=== PATIENT | female | born 2000 | race Caucasian/White ===

== ENCOUNTER 2025-09-22 10:25 | Emergency (ER) | payer SELFPAY ==
--- OUTSIDE RECORDS SUMMARY | 2025-09-11 16:28 | XMS_ITS | Continuity of Care Document ---
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 Name Role Phone Hernesto Neal Primary Care Physician Encounter [facility] [id number] Date(s): 09/11/25 - 09/11/[address] [address]- Encounter Diagnosis Threatened miscarriage(Discharge Diagnosis) - 09/11/25 Intrauterine (Discharge Diagnosis) - 09/11/25 Asymptomatic bacteriuria(Discharge Diagnosis) - 09/11/25 Subchorionic hemorrhage(Discharge Diagnosis) - 09/11/25 Discharge Disposition: Home (Routine DC) Attending Physician: Helen Salcido DO Encounter Type: Emergency Allergies, Adverse Reactions, Alerts No Known Allergies Treatment Plan Extracted from:Title:ED NoteAuthor:Helen Salcido DODate:09/11/25 1. Threatened miscarriage (O20.0: Threatened ) 2.??Subchorionic hemorrhage??(O46.8X9: Other antepartum hemorrhage, unspecified trimester) 3.??Intrauterine ??(Z34.90: Encounter for supervision of normal , unspecified, unspecified trimester) 4.??Asymptomatic bacteriuria??(R82.71: Bacteriuria) Orders: cephalexin, 500 mg = 1 cap(s), Oral, BID, X 7 day(s), # 14 cap(s), Refills(s) 0, Pharmacy: [facility], 154, cm, 09/11/25 14:04:00 EST, Height/Length Dosing, 51.4, kg, 09/11/25 14:04:00 EST, Weight Dosing RHo (D) immune globulin, 300 mcg = 2 mL, Injection, IntraMuscular, Once, Stop date 09/11/25 15:32:00 EST, STAT, Start date 09/11/25 15:32:00 EST, 09/11/25 15:32:00 EST ABO/Rh Basic Metabolic Panel Beta hCG Quantitative CBC w/ Auto Diff eGFR Extra Blue Tube U Beta Hcg Qual UA with Cult Rflx UA with Cult Rflx SP Urine Culture US Limited Diagnostic Tests Pending * Urine Culture 09/11/25 Immunizations Given and Recorded VaccineDateStatusRefusal Reasonmeningococcal group B vaccine06/22/18Recorded meningococcal group B vaccine05/18/18Recordedhuman papillomavirus vaccine05/18/18 Recordedhuman papillomavirus vaccine05/27/14Recordedhuman papillomavirus vaccine 03/14/14Recordedmeningococcal conjugate vaccine05/18/18Recordedmeningococcal conjugate vaccine03/14/14Recordedhepatitis A adult vaccine03/14/14Recorded hepatitis A adult vaccine04/02/07Recordeddiphtheria/pertussis, acel/tetanus adult 03/14/14Recordedvaricella virus vaccine04/02/07Recordedvaricella virus vaccine 07/27/03Recordedmeasles/mumps/rubella virus vaccine04/02/07Recorded measles/mumps/rubella virus vaccine07/27/03Recordedpoliovirus vaccine, inactivated04/02/07Recordedpoliovirus vaccine, inactivated02Recorded poliovirus vaccine, etzxbnptvpq02Recordedpoliovirus vaccine, inactivated 02Recordeddiphtheria/pertussis, acel/tetanus ped04/02/07Recorded diphtheria/pertussis, acel/tetanus ped07/27/03Recordeddiphtheria/pertussis, acel/tetanus ped02Recordeddiphtheria/pertussis, acel/tetanus ped02 Recordeddiphtheria/pertussis, acel/tetanus ped02Recordedhaemophilus b conjugate (HbOC) vaccine07/27/03Recordedhaemophilus b conjugate (HbOC) vaccine 02Recordedhaemophilus b conjugate (HbOC) lmreklu99/4/02Recordedhaemophilus b conjugate (HbOC) vaccine02Recordedhepatitis B adult vaccine02Recorded hepatitis B adult vaccine02Recordedhepatitis B adult vaccine02Recorded Not Given VaccineDateStatusRefusal XrodptBVVU-YeW-2 mRNA (tozinameran 5y-11y) vac03/27/23 Not GivenRefused by parent, guardian, or patient - reschedule Medications Keflex 500 mg oral capsule 500 mg = 1 cap(s), Oral, BID, X 7 day(s), # 14 cap(s), Refills(s) 0, Pharmacy: [facility] 1985, 154, cm, 09/11/25 14:04:00 EST, Height/Length Dosing, 51.4, kg, 09/11/25 14:04:00 EST, Weight Dosing Start Date: 09/11/25 Stop Date: 09/18/25 Status: Ordered Medication Dispense Status: Completed Quantity: 14.0 Unit: cap(s) Total Allowed Fills: 1 Fills Dispensed: 0 Sprintec oral tablet 1 tab(s), Oral, Daily, 84 tab(s), Refill(s) 4, [facility] Start Date: 09/15/19 Status: Ordered Medication Dispense Status: Completed Quantity: 84.0 Unit: tab(s) Total Allowed Fills: 5 Fills Dispensed: 0 Problem List ConditionConfirmationCourseEffective DatesStatusHealth StatusInformantWell child wwrleNafxnxbnxDguefdSkfoua8JvfugzypaLtadgeGdjuqmh useConfirmedActivepatient 1Added secondary to documentation in Social History. Procedures ProcedureDateRelated DiagnosisBody SiteStatusTonsils and Shhbvua7067Mewhehkqi Results Laboratory List NameDateU Beta Hcg Qual09/11/25UA with Cult Rflx111/11/24UA with Cult Rflx SP 09/11/25ABO/Rh09/11/25Basic Metabolic Panel09/11/25Beta hCG Quantitative (hCG Quantitative)09/11/25CBC w/ Auto Diff09/11/2588bWUO43/9/25 Most recent to oldest [Reference Range]:1ABO/RhO NEG *Unknown* (09/11/25 2:15 PM)UA Bacteria [Trace /HPF]1+ /HPF *ABN* (09/11/25 2:31 PM)UA Bili [Negative mg/dL]Negative mg/dL (09/11/25 2:31 PM)UA Color [Yellow]Light-Brown1 *ABN* (09/11/25 2:31 PM)UA Glucose [Negative mg/dL]Negative mg/dL (09/11/25 2:31 PM)UA Ketones [Negative mg/dL]Negative mg/dL (09/11/25 2:31 PM)UA Leuk Est [Negative Radha/uL]Negative Radha/uL (09/11/25 2:31 PM)UA Mucous [Negative graded/LPF]Trace graded/LPF (09/11/25 2:31 PM)UA Nitrite [Negative mg/dL]Negative mg/dL (09/11/25 2:31 PM)UA Protein [Negative mg/dL]Trace mg/dL *ABN* (09/11/25 2:31 PM)UA RBC [0-3 graded/HPF]>75 graded/HPF *ABN* (09/11/25 2:31 PM)UA Squam Epithelial0-2 graded/HPF *NA* (09/11/25 2:31 PM)UA Urobilinogen [Negative mg/dL]Negative mg/dL (09/11/25 2:31 PM)UA WBC [0-5 graded/HPF]>75 graded/HPF *ABN* (09/11/25 2:31 PM)UA Spec DescClean Catch (09/11/25 2:31 PM)UA Blood [Negative mg/dL]3+ mg/dL *ABN* (09/11/25 2:31 PM)UA Clarity [Clear]Turbid *ABN* (09/11/25 2:31 PM)BUN/Creat Ratio [10-20]13 (09/11/25 2:15 PM)AGAP [6-16 mEq/L]12 mEq/L (09/11/25 2:15 PM)Basophil Auto [0.0-2.0 %]0.2 % (09/11/25 2:15 PM)CO2 [21-31 mmol/L]26 mmol/L (09/11/25 2:15 PM)Eos Auto [0.0-8.0 %]1.3 % (09/11/25 2:15 PM)Glucose Lvl [55-199 mg/dL]79 mg/dL (09/11/25 2:15 PM)Hct [34.0-46.0 %]42.4 % (09/11/25 2:15 PM)Hgb [12.0-16.0 gm/dL]14.4 gm/dL (09/11/25 2:15 PM)Lymph Auto [14.0-50.0 %]14.2 % (09/11/25 2:15 PM)RBC [4.3-5.9 E12/L]4.8 E12/L (09/11/25 2:15 PM)RDW [10.9-14.2 %]13.3 % (09/11/25 2:15 PM)Sodium Lvl [135-145 mmol/L]137 mmol/L (09/11/25 2:15 PM)MCH [27.0-34.0 pg]30.1 pg (09/11/25 2:15 PM)MCHC [31.4-36.0 gm/dL]33.9 gm/dL (09/11/25 2:15 PM)MCV [80.0-100.0 fL]88.7 fL (09/11/25 2:15 PM)[place] Auto [4.0-14.0 %]3.2 % *LOW* (09/11/25 2:15 PM)MPV [6.4-10.8 fL]9.3 fL (09/11/25 2:15 PM)Neutro Auto [36.0-75.0 %]81.1 % *HI* (09/11/25 2: PM)UA pH [5.0-9.0]6.5 *NA* (09/11/25 2:31 PM)BUN [5-21 mg/dL]9 mg/dL (09/11/25 2:15 PM)Calcium Lvl [8.9-11.1 mg/dL]9.0 mg/dL (09/11/25 2:15 PM)Platelet [150.0-500.0 E9/L]252.0 E9/L (09/11/25 2:15 PM)Potassium Lvl [3.5-5.3 mmol/L]3.6 mmol/L (09/11/25 2:15 PM)UA Spec Grav [1.005-1.030]1.007 *NA* (09/11/25 2:31 PM)WBC [4.0-11.0 E9/L]13.8 E9/L2 *HI* (09/11/25 2:15 PM)Chloride [101-111 mmol/L]103 mmol/L (09/11/25 2:15 PM)Beta hCG Qnt [1-3 mIU/mL]890210 mIU/mL3 *HI* (09/11/25 2:15 PM)[place] Absolute [0.2-1.0 E9/L]0.4 E9/L (09/11/25 2:15 PM)Eos Absolute [0.0-0.5 E9/L]0.2 E9/L (09/11/25 2:15 PM)Basophil Absolute [0.0-0.2 E9/L]0.0 E9/L (09/11/25 2:15 PM)Neutro Absolute [2.0-7.5 E9/L]11.2 E9/L *HI* (09/11/25 2:15 PM)Lymph Absolute [1.0-4.0 E9/L]2.0 E9/L (09/11/25 2:15 PM)eGFR [>=59 mL/min/1.73 m2]124 mL/min/1.73 m2 (09/11/25 2:15 PM)Creatinine [0.5-1.3 mg/dL]0.7 mg/dL (09/11/25 2:15 PM)U beta hCG QlPositive (09/11/25 2:31 PM) 1Interpretive Data: Microscopic readings are only performed on those samples that meet specific criteria set forth by [facility]. 2Result Comment: Peripheral smear review performed. 3Result Comment: 'F NON < 1 - 3' ' 0.2 - 1 WEEK = 5 TO 50' ' 1 - 2 WEEKS = 50 - 500' ' 2 - 3 WEEKS = 100 - 5000' ' 3 - 4 WEEKS = 500 - 72171' ' 4 - 5 WEEKS = 1000 - 75877' ' 5 - 6 WEEKS = 36934 - 463867' ' 6 - 8 WEEKS = 58985 - 390606' ' 8 - 12 WEEKS = 06171 - 712208' Social History Social History TypeResponseSmoking Qacsdi40 or more cigarettes (1/2 pack or more)/day in last 30 days entered on: 09/11/25Birth SexFemaleSex RepresentationFemale (finding) Hospital Discharge Instructions Patient Education 09/11/2025 16:02:14 Subchorionic Hematoma Subchorionic Hematoma A hematoma is a collection of blood outside of the blood vessels. A subchorionic hematoma is a collection of blood between the outer wall of the embryo (chorion) and the inner wall of the uterus. This condition can cause vaginal bleeding. Early small hematomas usually shrink on their own and donot affect your baby or . When bleeding starts later in , or if the hematoma is larger or occurs in older women, the condition may be more serious. Larger hematomas increase the chances of miscarriage. This condition also increases the risk of: ??? Premature separation of the placenta from the uterus. ??? Premature () labor. ??? Stillbirth. What are the causes? The exact cause of this condition is not known. It occurs when blood is trapped between the placenta and the uterine wall because the placenta has from the original site of implantation. What increases the risk? You are more likely to develop this condition if: ??? You were treated with fertility medicines. ??? You became through in vitro fertilization (IVF). What are the signs or symptoms? Symptoms of this condition include: ??? Vaginal spotting or bleeding. ??? Abdominal pain. This is rare. Sometimes you may have no symptoms and the bleeding may only be seen when ultrasound images are taken (transvaginal ultrasound). How is this diagnosed? This condition is diagnosed based on a physical exam. This includes a pelvic exam. You may also have other tests, including: ??? Blood tests. ??? Urine tests. ??? Ultrasound of the abdomen. How is this treated? Treatment for this condition can vary. Treatment may include: ??? Watchful waiting. You will be monitored closely for any changes in bleeding. ??? Medicines. ??? Activity restriction. This may be needed until the bleeding stops. ??? A medicine called Rh immunoglobulin. This is given if you have an Rh- negative blood type. It prevents Rh sensitization. Follow these instructions at home: ??? Stay on bed rest if told to do so by your health care provider. ??? Do not lift anything that is heavier than 10 lb (4.5 kg), or the limit that you are told by your health care provider. ??? Track and write down the number of pads you use each day and how soaked (saturated) they are. ??? Do not use tampons. ??? Keep all follow-up visits. This is important. Your health care provider may ask you to have follow-up blood tests or ultrasound tests or both. Contact a health care provider if: ??? You have any vaginal bleeding. ??? You have a fever. Get help right away if: ??? You have severe cramps in your stomach, back, abdomen, or pelvis. ??? You pass large clots or tissue. Save any tissue for your health care provider to look at. ??? You faint. ??? You become light-headed or weak. Summary ??? A subchorionic hematoma is a collection of blood between the outer wall of the embryo (chorion)and the inner wall of the uterus. ??? This condition can cause vaginal bleeding. ??? Sometimes you may have no symptoms and the bleeding may only be seen when ultrasound images aretaken. ??? Treatment may include watchful waiting, medicines, or activity restriction. ??? Keep all follow-up visits. Get help right away if you have severe cramps or heavy vaginal bleeding. This information is not intended to replace advice given to you by your health care provider. Make sure you discuss any questions you have with your health care provider. Document Revised: 07/16/2021 Document Reviewed: 07/16/2021 [employer] Patient Education ?? 2023 EVRGR. Follow Up Care 09/11/2025 13:54:59 With:Suly Levy Address: [address] [address]- Business (1) When:09/14/2025 16:02:04 With:Murali EVANS Address: [address] [place] [address]- Business (1) When:09/14/2025 16:01:47 With:Hernesto Neal Address: [address] [place] [address]- Business (2) When:Within 3 Day(s) Physician Emergency department Note * Helen Salcido DO: MODIFY, MODIFY, MODIFY, MODIFY, MODIFY, PERFORM Event Display: ED Note-Physician Authored Date: [id number] Basic Information Time Seen: Helen Salcido DO ??09/11/2025 14:01 Chief Complaint currently 15 weeks , has not seen OB yet, wants to schedule with Dr. Tubbs. vaginal bleeding started approx. 20 minutes ago. states she had a panty liner on and when she checked in it randown her leg. History of Present Illness Patient is a 25-year-old female?? currently 19 weeks ??first day last menstrual periodJune 25. ??Presenting for evaluation of vaginal bleeding that started??today.?? She denies any abdominal pain with this. ??Start about 20 minutes ago.?? She does state she has gone through 2 pantiliners and there was some bleeding is going down her right leg. ??Denies passing clots.??She plans to establish??care with Dr. Tubbs for this her ultrasound done. ??She did do a home test which was positive.?? Review of Systems Constitutional: no fever, no chills, no sweats, no weakness HEENT: no sore throat, ear pain, sinus congestion?? Respiratory: no SOB, no cough, no orthopnea, no wheezing?? Cardiovascular: no chest pain, no palpitations, no edema?? Abdomen: no pain, distension, no n/v or diarrhea?? Extremities: no swelling?? Neurological: no dizziness, confusion, headache?? Additional ROS info: Except as noted above in the above review of systems and in the history of present illness all other systems have been reviewed and are negative or noncontributory?? Physical Exam Vitals & Measurements T:??36.5?C(Oral)?? HR:??91(Peripheral)?? RR:??18?? BP:??121/60?? SpO2:??100%?? HT:??154??cm?? WT:??51.4??kg?? BMI:??21.67?? Constitutional: No acute distress, nontoxic, non ill appearing?? Heart: Regular rate and rhythm without murmurs, gallops or rubs?? Lungs: clear to auscultation bilaterally without wheezes, rales or rhonchi?? Abdomen: soft, minimal lower??abdominal tenderness, nondistended abdomen, gravid abdomen : Small amount of dark red blood pooling in the vaginal vault, cervix is closed, no lacerations, no clots, no lesions, no purulent discharge Extremities: warm and dry bilaterally without pitting edema?? Neurological: awake, alert answers questions appropriately?? Medical Decision Making ?? Esyyd-mz-urwh ultrasound demonstrating??intrauterine fetus??with??positive heart rate and??a lot??of movement. ?? Formal ultrasound showing subchorionic hemorrhage and baby is measuring 15 weeks??on the ultrasound.?? Labs showing??mild leukocytosis WBC 13.8, no anemia,??blood type is O-, ordered??RhoGAM for the patient, urinalysis??7??asymptomatic bacteriuria??cover patient with Keflex. ?? Discussed the case with Dr. Evans??recommends having patient follow-up with OB outpatient??givenreturn precautions??for??severe heavy bleeding. ??Patient is in agreement with plan.?? She was discharged home. Assessment/Plan 1.??Threatened miscarriage??(O20.0: Threatened ) 2.??Subchorionic hemorrhage??(O46.8X9: Other antepartum hemorrhage, unspecified trimester) 3.??Intrauterine ??(Z34.90: Encounter for supervision of normal , unspecified, unspecified trimester) 4.??Asymptomatic bacteriuria??(R82.71: Bacteriuria) Orders: cephalexin, 500 mg = 1 cap(s), Oral, BID, X 7 day(s), # 14 cap(s), Refills(s) 0, Pharmacy: [facility] 1983, 154, cm, 09/11/25 14:04:00 EST, Height/Length Dosing, 51.4, kg, 09/11/25 14:04:00 EST, Weight Dosing RHo (D) immune globulin, 300 mcg = 2 mL, Injection, IntraMuscular, Once, Stop date 09/11/25 15:32:00 EST, STAT, Start date 09/11/25 15:32:00 EST, 09/11/25 15:32:00 EST ABO/Rh Basic Metabolic Panel Beta hCG Quantitative CBC w/ Auto Diff eGFR Extra Blue Tube U Beta Hcg Qual UA with Cult Rflx UA with Cult Rflx SP Urine Culture US Limited Disposition Plan Discharge Prescription List Prescriptions No active prescription medications Follow-up No qualifying data available Problem List/Past Medical History Ongoing Well child check Historical No qualifying data Procedure/Surgical History Tonsils and Adnoids (2006). Medications Inpatient No active inpatient medications Home Sprintec oral tablet, 1 tab(s), Oral, Daily, 4 refills Allergies No Known Allergies Social History Alcohol - Denies Alcohol Use, 03/30/2023 Substance Abuse - Denies Substance Abuse, 03/30/2023 Tobacco - Denies Tobacco Use, 09/30/2016 Never (less than 100 in lifetime) Tobacco Use:. Never Smokeless Tobacco Use:., 03/27/2023 Family History Hypertension: Mother and Father. Lab Results WBC:??13.8 E9/L??High (09/11/25 14:15:00) RBC: 4.8 E12/L (09/11/25 14:15:00) HGB: 14.4 gm/dL (09/11/25 14:15:00) Hct: 42.4 % (09/11/25 14:15:00) MCV: 88.7 fL (09/11/25 14:15:00) MCH: 30.1 pg (09/11/25 14:15:00) MCHC: 33.9 gm/dL (09/11/25 14:15:00) RDW: 13.3 % (09/11/25 14:15:00) Platelet: 252 E9/L (09/11/25 14:15:00) MPV: 9.3 fL (09/11/25 14:15:00) Neutro Auto:??81.1 %??High (09/11/25 14:15:00) Lymph Auto: 14.2 % (09/11/25 14:15:00) [place] Auto:??3.2 %??Low (09/11/25 14:15:00) Eos Auto: 1.3 % (09/11/25 14:15:00) Basophil Auto: 0.2 % (09/11/25 14:15:00) Neutro Absolute:??11.2 E9/L??High (09/11/25 14:15:00) Lymph Absolute: 2 E9/L (09/11/25 14:15:00) [place] Absolute: 0.4 E9/L (09/11/25 14:15:00) Eos Absolute: 0.2 E9/L (09/11/25 14:15:00) Basophil Absolute: 0 E9/L (09/11/25 14:15:00) UA Spec Desc: Clean Catch (09/11/25 14:31:00) UA Color: Light-Brown Abnormal (09/11/25 14:31:00) UA Clarity: Turbid Abnormal (09/11/25 14:31:00) UA Spec Grav: 1.007 (09/11/25 14:31:00) UA pH: 6.5 (09/11/25 14:31:00) UA Protein: Trace Abnormal (09/11/25 14:31:00) UA Glucose: Negat (09/11/25 14:31:00) UA Ketones: Negat (09/11/25 14:31:00) UA Bili: Negat (09/11/25 14:31:00) UA ??Blood: 3+ Abnormal (09/11/25 14:31:00) UA Nitrite: Negat (09/11/25 14:31:00) UA Urobilinogen: Negat (09/11/25 14:31:00) UA Leuk Est: Negat (09/11/25 14:31:00) UA RBC: >75 Abnormal (09/11/25 14:31:00) UA Squam Epithelial: 0-2 (09/11/25 14:31:00) UA WBC: >75 Abnormal (09/11/25 14:31:00) UA Bacteria: 1+ Abnormal (09/11/25 14:31:00) UA Mucous: Trace (09/11/25 14:31:00) U beta hCG Ql: Positive (09/11/25 14:31:00) ABO/Rh: O NEG (09/11/25 14:15:00) Diagnostic Results US Limited ?? 09/11/25 15:41:02 IMPRESSION: SINGLE LIVE INTRAUTERINE CORRESPONDING TO APPROXIMATELY Composite Ultrasound Age: 15 weeks, 4 days. ?? APPROXIMATELY 5 CM SUBCHORIONIC HEMORRHAGE. ?? PROBABLY UNSURE DATES RATHER THAN IUGR, NOTED. ?? NO OTHER FINDINGS OF CONCERN IDENTIFIED, WITHIN THE LIMITS OF THE STUDY. ? EXAM: US Limited ?? DATE: 09/11/2025 2:52 PM ?? CLINICAL HISTORY: vaginal bleeding. Technologist Comments: Vaginal bleeding that started 20 mins WEAVER WIRE LOOM. No prev ultrasound done anywhere.LMP: 04/27/2025 KAUSHAL from LMP: 02/01/2026 Gestational Age by LMP: 19 weeks, 4 days ?? COMPARISON: None available. ?? Transabdominal ultrasound of the gravid uterus was performed. ?? FINDINGS: ?? A single live intrauterine is noted in variable position. ?? cardiac activity is measured at 144 bpm. ?? PLACENTA: ?? A grade 0 placenta appears to be developing anteriorly, with an approximately 5.2 x 2.9 x 0.9 cm subchorionic hemorrhage crescent-shaped subchorionic hemorrhage on the right. ?? The amniotic fluid volume appears within normal limits for gestation. ?? MEASUREMENTS: ?? The following measurements were obtained: ?? * Biparietal Diameter: 3.1 cm corresponding to <2% (Percentile LMP) * Head Circumference: 11.7 cm corresponding to <2% (Percentile LMP) * Abdominal Circumference: 9.1 cm corresponding to <2% (Percentile LMP) * Femur Length: 1.7 cm corresponding to <2% (Percentile LMP) * which corresponds to Composite Ultrasound Age: 15 weeks, 4 days. ?? ESTIMATED WEIGHT: ?? Estimated Weight: 118 (grams) Estimated Weight: 0lbs 4.2ozs (lbs/oz) EFW LMP Percentile: <2% (Percentile) ?? The estimated date of delivery by measurements is: KAUSHAL from average ultrasound age: 0403/01/2026. ?? The KAUSHAL from LMP: 02/01/2026, probably unsure dates rather than IUGR. ?? An anatomic survey was not performed. Neither maternal ovaries are identified. ?? There is no free fluid or other findings of concern identified. ? Ordering Provider: Helen Salcido ?? Signed By: Fede Ferguson MD Electronically Signed By: Helen Salcido DO Date and Time Signed: 09/11/25 18:47 EST Patient Care team information Care Team Personnel Name: Hernesto Neal MD Member Role: Primary Care Physician Address: [address] [place] [address]- Telecom: Care Team Related Persons Name: NICK PARK Name: MIGUEL PARK Name: MIGUEL PARK Name: HELEN GUY Insurance Providers Guarantor name: [employer] Health Plan Information #: 1 Payer: SELF PAY Payer Identifier: [id number] Member Number: NA Group Number: NA Subscriber Identifier: [id number] Relationship to Subscriber: self Coverage Type: NA Coverage Verification Date: NA Telecom: NA Address:
[2025-09-22 10:35] VITALS: BP 119/77; PULSE 77; TEMP 36.7; O2SAT 99
[2025-09-22 10:37] VITALS: BP 119/77; PULSE 80; TEMP 36.7; O2SAT 99; BMI 21.9
--- OUTSIDE RECORDS SUMMARY | 2025-09-22 10:37 | XMS_ITS | Clinical Summary ---
Author Organization [facility] Address [address] [facility] [place] [address] Care Team Providers Care Reconditioner Name Role Phone Unallocated, Noms Provider MD Primary Care Provi susy Allergies No known active allergies Medications MedicationSigDispense QuantityRefillsLast FilledStart DateEnd DateStatus Multiple Vitamin (Multi Vitamin) tablet 1 (one) time each day at the same time.ActiveHospital, Clinic, or Other Facility Administered MedicationOrdered DoseRouteFrequencyStart DateEnd DateStatus cefTRIAXone (Rocephin) vial 250 mg Indications:Pelvic pain in female,Abnormal vaginal serhbisa881 mgIMOnce 5Active cefTRIAXone (Rocephin) vial 250 mg Indications:IUD check up,Pelvic pain in female,Abnormal vaginal iugapsmc993 mgIM Once5Active Active Problems ProblemNoted DateDiagnosed DatePTSD (post-traumatic stress disorder)08/25/2024 Mixed obsessional thoughts and acts08/25/2024 Family History Medical HistoryRelationNameCommentsAllergiesFatherHypertensionFatherCirrhosis Maternal GrandfatherSkin cancerMaternal GrandmotherHypothyroidismMotherStomach cancerPaternal GrandfatherRelationNameStatusCommentsBrother(2)FatherAlive Maternal GrandfatherMaternal GrandmotherMotherAlivePaternal GrandfatherSonAlive Social History Tobacco UseTypesPacks/DayYears UsedDateSmoking Tobacco: NeverSmokeless Tobacco: Never Tobacco Cessation:Counseling Given: Not Answered Alcohol UseStandard Drinks/WeekCommentsNot Currently0 (1 standard drink = 0.6 oz pure alcohol)Caffeine: 1-2 cups/day teaAUDIT-CAnswerDate RecordedQ1: How often do you have a drink containing alcohol?Monthly or less08/16/2024Q2: How many drinks containing alcohol do you have on a typical day when you are drinking?1 or Q3: How often do you have six or more drinks on one occasion?Less than riutucz5808/16/2024HQ-2AnswerDate RecordedPatient Health Questionnaire-2 Bkmbk721EducationAnswerDate RecordedWhat is the highest level of school you have completed or the highest degree you have received?High school graduate 04/11/2023CommentsNoSex and Gender InformationValueDate RecordedSex Assigned at BlwhcRldbnx43/17/2023 11:52 AM EDTLegal BkxAhnhez94/15/2023 7:09 PM EDTGender DbcnfdjfQhphpl15/17/2023 11:52 AM EDTSexual OrientationPansexual 03/19/2023 11:52 AM EDTOccupationIndustryJob Start DateJob End DateNot on file Not on fileNot on fileNot on file Last Filed Vital Signs Vital SignReadingTime TakenCommentsBlood Wivbwkbn612/68002/02/2025 10:54 AM EDT Pulse--Temperature--Respiratory Rate--Oxygen Saturation--Inhaled Oxygen Concentration--Oclcbb93.5 kg (96 lb)02/02/2025 10:54 AM XXRCgjfxk826.7 cm (5' 0.5 )03/19/2023 12:00 PM EDTBody Mass Index18.44003/19/2023 12:00 PM EDT Plan of Treatment Health MaintenanceDue DateLast DoneCommentsCOVID-19 Vaccine ( season) 2025Influenza Vaccine (#1)2025Pneumococcal Vaccine: Pediatrics (0 to 5 Years) and At-Risk Patients (6 to 64 Years)Aged OutNo longer eligible based on patient's age to complete this topic Care Teams Team MemberRelationshipSpecialtyStart DateEnd Date Unallocated, Noms Nicole, [address], [place] [id number] PCP - General07/16/23
--- OUTSIDE RECORDS SUMMARY | 2025-09-22 10:37 | XMS_ITS | Clinical Summary ---
Author Organization [facility] tem Address [id number] [address] [place] [address] Care Team Providers Care Adjunct Instructor Name Role Phone Pedrito Estrella DO Primary Care Provider [phone] Allergies No known active allergies Medications MedicationSigDispense QuantityRefillsLast FilledStart DateEnd DateStatus 25/iron fum/folic/dha (-1 ORAL) Take by mouth.Active Active Problems ProblemNoted DateDiagnosed DateUterine size-date discrepancy, unspecified jzuhtsvwy52/28/2022regnancy affected by growth mjqtytiaoai51/27/2022h negative state in antepartum period, third dysejciko21/21/2022IUGR (intrauterine growth restriction) affecting care of mother, first trimester, not applicable or unspecified fetus11/21/2021 Immunizations ImmunizationAdministration DatesNext DueRho (D) Immune Xmaznosb90/28/2022 Family History Medical HistoryRelationNameCommentsHypertensionFatherCancerMaternal Grandfather CirrhosisMaternal GrandfatherCancerMaternal GrandmotherAsthmaMother HypothyroidismMotherCancerPaternal GrandfatherRelationNameStatusCommentsFather Maternal GrandfatherMaternal GrandmotherMotherPaternal Grandfather Social History Tobacco UseTypesPacks/DayYears UsedDateSmoking Tobacco: NeverSmokeless Tobacco: NeverAlcohol UseStandard Drinks/WeekCommentsNot Currently0 (1 standard drink = 0.6 oz pure alcohol)ChildcareAnswerDate ZdhlrafqObxbapfaoXnmzfsu74/11/2019 EmploymentAnswerDate MydgcueyQhycgaqbnjEtsnzdv31/11/2019CommentsNoSex and Gender InformationValueDate RecordedSex Assigned at BirthNot on fileLegal RxnKectnz35/04/2015 5:01 PM EDTGender IdentityNot on fileSexual OrientationNot on file Last Filed Vital Signs Vital SignReadingTime TakenCommentsBlood Pchwtzxw808/52012/14/2021 12:55 PM EST Lyxwd010212/14/2021 12:55 PM PNGSmawvdaowvs40.8 ??C (98.2 ??F)11/30/2021 9:31 PM ESTRespiratory Ajrg835111/30/2021 9:31 PM ESTOxygen Saturation--Inhaled Oxygen Concentration--Hfhdfb63.3 kg (135 lb 2.3 oz)12/14/2021 12:55 PM PBCHryzki287.5 cm (5' 2 )11/29/2021 7:52 PM ESTBody Mass Index24.72011/29/2021 7:52 PM EST Plan of Treatment Health MaintenanceDue DateLast DoneCommentsDepression Mohepfocn51/06/2014Tobacco Wewemactz16/06/2014Adult BMI Ttjqlkcli21/06/2020Pap Smear3DTaP,Tdap and Td Vaccines (7 - Td or Tdap), 04/02/2007, 07/27/2003, Additional history existsInfluenza Iwnymev4407/04/2025 Medical Devices Not on file Insurance Advance Directives * Full Code (Latest Code Status on File) Date ActivatedDate InactivatedComments11/29/2021 7:04 PM12/01/2021 12:32 AM Care Teams Team MemberRelationshipSpecialtyStart DateEnd Date Pedrito Estrella DO PCP - GeneralFamily Medicine12/10/21
--- NOTE | 2025-09-22 10:47 | US_ITS ---
The [address] [address] Patient Name: LUIS PARK MRN: [id number] date: 2000 Sex: F Assigned Patient Location: ER Current Patient Location: ER Accession/Order Number: [id number] Exam Date: 09/22/2025 10:48 Report Date: 09/22/2025 12:28 At the request of: DANIELLE DUNCAN MD Procedure: US OB limited OB ultrasound. Reason for exam:Vaginal bleeding for one day. Comparison:None Technique: Transabdominal imaging of the gravid uterus was obtained. Findings: Single live intrauterine measuring 16 weeks 4 days by anatomic measurements. heart rate 151 bpm. Appropriate growth for dating. There appears be a subplacental hematoma/placental abruption with heterogenous appearance involving the placenta. There is a potential marginal cord insertion involving the placenta. No free fluid is seen. Cervix measures 4.1 cm without funneling. US/US OB limited Impression: Single live intrauterine 16 weeks 4 days by anatomic measurements. Appropriate growth by dating. Subplacental hematoma/placental abruption with heterogenous appearing placenta. There is questionable marginal insertion of the umbilical cord. Evaluation by RIFLE CASE REPAIRER and ultrasound follow-up is recommended. Findings were discussed with the emergency room physician by the radiology technologist shortly after imaging. Impression dictated by: Chidi Andujar Jr., D.O. 09/22/2025 12:28 PM Dictation Location: [place] [address] Electronically authenticated by: [id number] Y Date: 09/22/2025 12:28
--- NOTE | 2025-09-22 10:48 | ED.GENADUL1 ---
HPI HPI - General Adult General Chief complaint: Vaginal Bleeding Stated complaint: 16 WEEKS BLEEDING Time Seen by Provider: 09/22/25 10:43 Source: friend Mode of arrival: walk-in Limitations: no limitations History of Present Illness HPI narrative: 25-year-old female presenting for vaginal bleeding in . She states she is about 16 weeks. About a week and a half ago she had some bleeding and went to another hospital and had an ultrasound. At that time she was diagnosed with a subchorionic hemorrhage. The bleeding stopped several days ago but then resumed again today. No abdominal pain or trauma. She has not been established with an lining repairer. Related Data Allergies Allergy/AdvReac Type Severity Reaction Status Date / Time No Known Drug Allergies Allergy Verified 09/22/25 10:35 Review of Systems ROS Narrative A ten point review of systems is negative except as noted above. PFSH PFSH Social History Little interest or pleasure in doing things: not at all Feeling down, depressed, or hopeless: not at all Exam Narrative Exam Narrative: Nurses note and vital signs reviewed General:The patient appears well and in no apparent distress.Patient is resting comfortably on cart. Skin:Warm, dry, mild pallor noted.There is no rash noted. Head:Normocephalic, atraumatic Eye: Normal conjunctiva, no drainage Ears, Nose, Mouth, and Throat: oral mucosa is moist. Nares patent. Cardiovascular:Regular Rate and Rhythm Respiratory:Patient is in no distress, no accessory muscle use, lungs are clear to auscultation, no wheezing, rales or rhonchi Back:non-tender GI: Gravid soft and nontender Musculoskeletal: The patient has no evidence of calf tenderness, no pitting edema, symmetrical pulses noted bilaterally Neurological:A&O, normal speech Psychiatric:Cooperative Constitutional Vital Signs, click to edit/add: Last Vital Signs Temp 98.1 F 09/22/25 10:37 Pulse 71 09/22/25 12:40 Resp 20 09/22/25 12:40 BP 123/73 09/22/25 12:40 Pulse Ox 99 09/22/25 12:40 Course Vital Signs Vital signs: Vital Signs Temperature 98.1 F 09/22/25 10:35 Pulse Rate 77 09/22/25 10:35 Respiratory Rate 18 09/22/25 10:35 Blood Pressure 119/77 09/22/25 10:35 Pulse Oximetry 99 09/22/25 10:35 Temperature 98.1 F 09/22/25 10:37 Pulse Rate 71 09/22/25 12:40 Respiratory Rate 20 09/22/25 12:40 Blood Pressure 123/73 09/22/25 12:40 Pulse Oximetry 99 09/22/25 12:40 Medical Decision Making MDM Narrative Medical decision making narrative: The patient presented with vaginal bleeding and per radiologist has subchorionic hemorrhage with some degree of placental abruption. Heartbeat is normal. Case is discussed with Dr. Evans. The patient will be discharged home and will see him in the office next week for appropriate follow-up care. She was advised no sex or strenuous activities. She is already off of work. Blood type is O- but she had a RhoGAM shot about 10 days ago and does not need another 1. Findings are discussed thoroughly with the patient. Differential Diagnosis Differential Diagnosis: Miscarriage, subchorionic hemorrhage, placental abruption Lab Data Lab results reviewed: Yes I reviewed the patient's lab results Labs: Lab Results 09/22/25 Range/Units 10:56 WBC 11.4 H (4.0-11.0) 10^3/uL RBC 4.16 L (4.20-5.40) 10^6/uL Hgb 13.0 (12.0-16.0) g/dL Hct 36.7 (36.0-48.0) % MCV 88.2 (81.0-99.0) fL MCH 31.3 (26.7-34.0) pg MCHC 35.4 H (29.9-35.2) g/dL RDW 13.1 (11.0-15.0) % Plt Count 277 (150-450) 10^3/uL MPV 10.6 (9.5-13.5) fL Neut % (Auto) 84.8 H (43.0-75.0) % Lymph % (Auto) 9.8 L (20.5-60.0) % [place] % (Auto) 4.5 (1.7-12.0) % Eos % (Auto) 0.3 L (0.9-7.0) % Baso % (Auto) 0.2 (0.2-2.0) % Neut # (Auto) 9.6 H (1.4-6.5) 10^3/uL Lymph # (Auto) 1.1 L (1.2-3.8) 10^3/uL [place] # (Auto) 0.5 (0.3-0.8) 10^3/uL Eos # (Auto) 0.0 (0.0-0.7) 10^3/uL Baso # (Auto) 0.0 (0.0-0.1) 10^3/uL Abs Immat Gran (auto) 0.04 H (0.00-0.03) 10^3/uL Imm/Tot Granulo (auto) 0.4 (0.0-0.5) % Sodium 140 (136-145) mmol/L Potassium 3.4 L (3.5-5.1) mmol/L Chloride 105 (98-107) mmol/L Carbon Dioxide 24.5 (21.0-32.0) mmol/L Anion Gap 13.9 BUN 8.0 (7.0-18.0) mg/dL Creatinine 0.66 (0.55-1.02) mg/dL Est GFR ( Amer) >60 (>=60 mL/min/1.73m^2) Est GFR (Non-Af Amer) >60 (>=60 mL/min/1.73m^2) BUN/Creatinine Ratio 12.1 Glucose 67 L (74-106) mg/dL Calcium 8.5 (8.5-10.1) mg/dL HCG, Quant 28418 mIU/mL Blood Type O Negative Imaging Data Pelvic ultrasound: Radiologist's impression: ITS Impressions Obstetrics Ultrasound 09/22/25 10:47 Impression: Single live intrauterine 16 weeks 4 days by anatomic measurements. Appropriate growth by dating. Subplacental hematoma/placental abruption with heterogenous appearing placenta. There is questionable marginal insertion of the umbilical cord. Evaluation by ACCOUNT STRATEGIST and ultrasound follow-up is recommended. Findings were discussed with the emergency room physician by the radiologic technologist chief shortly after imaging. Impression dictated by: Chidi Andujar Jr., D.O. 09/22/2025 12:28 PM Dictation Location: [place] [address] Electronically authenticated by: [id number] Y Date: 09/22/2025 12:28 Discharge Plan Discharge Chief Complaint: Vaginal Bleeding Clinical Impression: Placental abruption in second trimester Patient Disposition: Home, Self-Care Time of Disposition Decision: 12:42 Condition: Good Mode of Transportation: Private Vehicle Print Language: Latvian Instructions: Placental Abruption (DC) Referrals: Murali Evans DO [Physician, ACCOUNT STRATEGIST] - 1 week Physician,Non-Staff, MD [Primary Care Provider] - 1 week
[2025-09-22 11:08] LABS: Hematocrit 36.7 % (36.0-48.0); Hemoglobin 13.0 g/dL (12.0-16.0); Immature Granulocytes Abs Auto 0.04 10^3/uL (0.00-0.03); Immature Granulocytes Pct Auto 0.4 % (0.0-0.5); Lymphocytes Absolute Auto 1.1 10^3/uL (1.2-3.8); Mean Corpuscular HGB Conc 35.4 g/dL (29.9-35.2); Mean Corpuscular Hemoglobin 31.3 pg (26.7-34.0); Mean Corpuscular Volume 88.2 fL (81.0-99.0); Platelet Count 277 10^3/uL (150-450); Red Blood Count 4.16 10^6/uL (4.20-5.40); White Blood Count 11.4 10^3/uL (4.0-11.0)
[2025-09-22 11:56] LABS: Anion Gap 13.9; Blood Urea Nitrogen 8.0 mg/dL (7.0-18.0); Carbon Dioxide 24.5 mmol/L (21.0-32.0); Chloride 105 mmol/L (98-107); Estimated GFR (African America >60 (>=60 mL/min/1.73m^2); Estimated GFR (Non-African Ame >60 (>=60 mL/min/1.73m^2); Glucose 67 mg/dL (74-106); Potassium 3.4 mmol/L (3.5-5.1); Sodium 140 mmol/L (136-145)
[2025-09-22 11:57] LABS: Calcium 8.5 mg/dL (8.5-10.1)
[2025-09-22 12:40] VITALS: BP 123/73; PULSE 71; O2SAT 99
[2025-09-22 21:16] LABS: BOX Test Reference Lab FRMC
== END 2025-09-22 13:18 | disposition home or self-care (01) ==
PROVIDERS: Emergency Provider Emergency Medicine
DX: O45.92 Premature separation of placenta, unspecified, second trimester (principal); Z3A.16 16 weeks gestation of pregnancy; O26.892 Other specified pregnancy related conditions, second trimester; Z67.41 Type O blood, Rh negative
CPT/HCPCS: 36415; 76815; 80048; 84702; 85025; 86900; 86901; 99284